=== PATIENT | female | born 1935 | race Caucasian/White ===

== ENCOUNTER 2020-04-30 07:35 | Inpatient (IN) ==
[2020-04-30] MEDS ORDERED: Pantoprazole VIAL 40 MG VIAL IV ONE (08:03)
[2020-04-30 08:30] LABS: ABS Basophils 0.1 10^3/ul (0-0.2); ABS Eosinophils 0.2 10^3/ul (0-0.6); ABS Lymphocytes 0.5 10^3/ul (1.0-4.8); ABS Monocytes 0.8 10^3/ul (0-0.8); ABS Neutrophils 7.7 10^3/ul (1.5-7.7); Eosinophil % 1.7 %; Hematocrit 23 % (35-47); Hemoglobin 7.3 g/dL (12.0-16.0); Lymphocyte % 5.1 %; Mean Corpuscular HGB Conc 32 g/dL (31-36); Mean Corpuscular Hemoglobin 27 pg (27-31); Mean Corpuscular Volume 85 fL (80-97); Platelet Count 487 10^3/uL (150-450); Red Blood Count 2.68 10^6 /uL (3.70-4.87); Red Cell Distribution Width 18 % (10-15); White Blood Count 9.3 10^3/uL (3.5-10.8)
[2020-04-30 08:47] LABS: Activated Partial Thrombo Time 24.4 seconds (26.0-38.0); INR 1.03 (0.82-1.09)
[2020-04-30 08:53] LABS: Albumin 3.9 g/dL (3.2-5.2); Albumin/Globulin Ratio 1.2 (1-3); BUN/Creatinine Ratio 14.2 (8-20); Calcium 9.2 mg/dL (8.6-10.3); EGFR African American 55.4 (>60); EGFR Non-African American 45.8 (>60); Globulin 3.2 g/dL (2-4); Potassium 4.1 mmol/L (3.5-5.0); Total Bilirubin 0.4 mg/dL (0.2-1.0); Total Protein 7.1 g/dL (6.4-8.9)
[2020-04-30] MEDS ORDERED: Ondansetron 4 mg VIAL 2 MG/ML 2 ml VIAL IV PRN (10:39)
[2020-04-30 11:39] LABS: TSH Ultra Thyroid Stim Horm 3.25 mcIU/mL (0.34-5.60)
[2020-04-30] MEDS ORDERED: fentaNYL 100 mcg/2 ml 50 MCG/ML VIAL ONE (13:19)
[2020-04-30] MEDS ORDERED: Midazolam 10 mg/10 ml VIAL 1 mg/ml 10 ml VIAL (10 mg) ONE (13:19)
[2020-04-30 15:48] LABS: Hematocrit 20 % (35-47); Hemoglobin 6.4 g/dL (12.0-16.0)
[2020-04-30 20:26] LABS: Hematocrit 22 % (35-47); Hemoglobin 7.3 g/dL (12.0-16.0)
[2020-04-30] MEDS: Pantoprazole VIAL 40 MG VIAL IV SCH (22:46)
[2020-05-01 03:15] LABS: Hematocrit 21 % (35-47); Hemoglobin 7.4 g/dL (12.0-16.0)
[2020-05-01 06:49] LABS: ABS Basophils 0.1 10^3/ul (0-0.2); ABS Eosinophils 0.2 10^3/ul (0-0.6); ABS Lymphocytes 0.5 10^3/ul (1.0-4.8); ABS Monocytes 0.9 10^3/ul (0-0.8); ABS Neutrophils 6.1 10^3/ul (1.5-7.7); Eosinophil % 2.5 %; Hematocrit 23 % (35-47); Hemoglobin 7.7 g/dL (12.0-16.0); Lymphocyte % 6.7 %; Mean Corpuscular HGB Conc 33 g/dL (31-36); Mean Corpuscular Hemoglobin 27 pg (27-31); Mean Corpuscular Volume 82 fL (80-97); Nucleated Red Blood Cells % 0.1; Platelet Count 373 10^3/uL (150-450); Red Blood Count 2.82 10^6 /uL (3.70-4.87); Red Cell Distribution Width 18 % (10-15); White Blood Count 7.8 10^3/uL (3.5-10.8)
[2020-05-01 07:04] LABS: Anion Gap 6 mmol/L (2-11); BUN/Creatinine Ratio 10.6 (8-20); Blood Urea Nitrogen 11 mg/dL (6-24); CO2 Carbon Dioxide 25 mmol/L (22-32); Calcium 8.8 mg/dL (8.6-10.3); Chloride 106 mmol/L (101-111); EGFR African American 60.9 (>60); EGFR Non-African American 50.4 (>60); Glucose 96 mg/dL (70-100); Potassium 4.1 mmol/L (3.5-5.0); Sodium 137 mmol/L (135-145)
[2020-05-01] MEDS: Pantoprazole VIAL 40 MG VIAL IV SCH ×2 (08:03→20:34)
[2020-05-01] MEDS: NS 0.9% 1000 ml BAG 1,000 ML IV SCH ×2 (08:19→20:35)
[2020-05-01 11:29] LABS: % Iron Saturation 5 % (15-55); Iron 20 ug/dL (50-212); Total Iron Binding Capacity 395 mcg/dL (250-450); Transferrin 282 mg/dL (203-362); Unsaturated Iron Binding < 380 ug/dL
[2020-05-01 11:49] LABS: Ferritin 19.2 ng/mL (11-307)
[2020-05-01 11:53] LABS: Folate 13.35 ng/mL (>3.99)
[2020-05-01 11:54] LABS: Vitamin B12 371 pg/mL (180-914)
[2020-05-01] MEDS ORDERED: Iron Sucrose 200 MG in NS 0.9% 100 ml BAG 100 ML IVPB ONE (15:00)
[2020-05-02] MEDS: NS 0.9% 1000 ml BAG 1,000 ML IV SCH (07:23)
[2020-05-02] MEDS: Pantoprazole VIAL 40 MG VIAL IV SCH ×2 (07:58→21:10)
[2020-05-02 08:06] LABS: ABS Basophils 0.1 10^3/ul (0-0.2); ABS Eosinophils 0.2 10^3/ul (0-0.6); ABS Lymphocytes 0.4 10^3/ul (1.0-4.8); ABS Monocytes 0.9 10^3/ul (0-0.8); ABS Neutrophils 6.5 10^3/ul (1.5-7.7); Eosinophil % 2.4 %; Hematocrit 24 % (35-47); Hemoglobin 7.9 g/dL (12.0-16.0); Lymphocyte % 5.1 %; Mean Corpuscular HGB Conc 33 g/dL (31-36); Mean Corpuscular Hemoglobin 27 pg (27-31); Mean Corpuscular Volume 83 fL (80-97); Mean Platelet Volume 7.6 fL (7.4-10.4); Platelet Count 367 10^3/uL (150-450); Red Cell Distribution Width 18 % (10-15); White Blood Count 8.2 10^3/uL (3.5-10.8)
[2020-05-02] MEDS ORDERED: Iron Sucrose 200 MG in NS 0.9% 100 ml BAG 100 ML IVPB ONE (08:29)
[2020-05-02] MEDS ORDERED: Pneumococcal Vac 23-Polyvalent IM ONE (09:00)
[2020-05-02] MEDS ORDERED: PEG 3000 GI LAVAGE 1 GALLON PO ONE (12:00)
[2020-05-03] MEDS: Pantoprazole VIAL 40 MG VIAL IV SCH ×2 (08:36→20:09)
[2020-05-03] MEDS ORDERED: Iron Sucrose 20 MG/ML 5 ML VIAL IV PUSH ONE (09:58)
[2020-05-03] MEDS ORDERED: Iron Sucrose 200 MG in NS 0.9% 100 ml IVPB ONE (11:00)
[2020-05-03 12:01] LABS: Hematocrit 25 % (35-47); Hemoglobin 8.1 g/dL (12.0-16.0)
[2020-05-04 06:18] LABS: Hematocrit 26 % (35-47); Hemoglobin 8.3 g/dL (12.0-16.0)
[2020-05-04] MEDS: Pantoprazole VIAL 40 MG VIAL IV SCH (08:12)
[2020-05-04 16:31] VITALS: BP 138/53
== END 2020-05-04 17:40 | disposition home or self-care (01) | DRG 812 ==
LOC: MED 07:35 → ED 07:35 → MED 12:15
PROVIDERS: ADMIT Hospitalist; ATTEND Internal Medicine

== ENCOUNTER 2020-05-25 17:07 | Observation (INO) ==
[2020-05-25 17:50] LABS: ABS Basophils 0.1 10^3/ul (0-0.2); ABS Eosinophils 0.1 10^3/ul (0-0.6); ABS Lymphocytes 0.7 10^3/ul (1.0-4.8); ABS Monocytes 0.7 10^3/ul (0-0.8); ABS Neutrophils 8.4 10^3/ul (1.5-7.7); Eosinophil % 0.8 %; Hematocrit 22 % (35-47); Lymphocyte % 7.5 %; Mean Corpuscular HGB Conc 32 g/dL (31-36); Mean Corpuscular Hemoglobin 28 pg (27-31); Mean Corpuscular Volume 87 fL (80-97); Platelet Count 485 10^3/uL (150-450); Red Blood Count 2.48 10^6 /uL (3.70-4.87); Red Cell Distribution Width 20 % (10-15)
[2020-05-25 18:06] LABS: Albumin 3.4 g/dL (3.2-5.2); Albumin/Globulin Ratio 0.9 (1-3); BUN/Creatinine Ratio 22.1 (8-20); Calcium 8.9 mg/dL (8.6-10.3); EGFR African American 60.9 (>60); EGFR Non-African American 50.4 (>60); Globulin 3.8 g/dL (2-4); Total Bilirubin 0.3 mg/dL (0.2-1.0); Total Protein 7.2 g/dL (6.4-8.9)
[2020-05-26 08:07] LABS: BUN/Creatinine Ratio 19.4 (8-20); Calcium 8.4 mg/dL (8.6-10.3); EGFR African American 65.3 (>60); EGFR Non-African American 53.9 (>60); Hematocrit 24 % (35-47); Hemoglobin 7.7 g/dL (12.0-16.0); Mean Corpuscular HGB Conc 33 g/dL (31-36); Mean Corpuscular Hemoglobin 28 pg (27-31); Mean Corpuscular Volume 86 fL (80-97); Mean Platelet Volume 7.1 fL (7.4-10.4); Platelet Count 431 10^3/uL (150-450); Potassium 4.1 mmol/L (3.5-5.0); Red Blood Count 2.74 10^6 /uL (3.70-4.87); Red Cell Distribution Width 19 % (10-15); White Blood Count 8.2 10^3/uL (3.5-10.8)
[2020-05-26 19:35] LABS: % Iron Saturation 16 % (15-55); Iron 51 ug/dL (50-212); Total Iron Binding Capacity 328 mcg/dL (250-450); Transferrin 234 mg/dL (203-362); Unsaturated Iron Binding < 313 ug/dL
[2020-05-26 19:36] LABS: Ferritin 102.7 ng/mL (11-307)
[2020-05-27 07:12] LABS: Hematocrit 26 % (35-47); Hemoglobin 8.7 g/dL (12.0-16.0); Mean Corpuscular HGB Conc 34 g/dL (31-36); Mean Corpuscular Hemoglobin 29 pg (27-31); Mean Corpuscular Volume 87 fL (80-97); Platelet Count 381 10^3/uL (150-450); Red Blood Count 2.94 10^6 /uL (3.70-4.87); Red Cell Distribution Width 18 % (10-15); White Blood Count 9.4 10^3/uL (3.5-10.8)
[2020-05-27 19:51] VITALS: BP 112/50
[2020-05-29 12:43] LABS: Tissue Transglutaminase IgA Ab <1.2 U/mL
[2020-05-29 16:22] LABS: Immunoglobulin A 391 mg/dL (61 - 356)
== END 2020-05-27 16:00 | disposition home or self-care (01) | DRG 812 ==
LOC: MED 17:07 → ED 17:07 → MED 22:45
PROVIDERS: ADMIT Internal Medicine; ATTEND Internal Medicine